=== PATIENT | male | born 1995 | race Caucasian/White ===

== ENCOUNTER 2023-06-25 08:20 | Inpatient (IN) | payer BC ==
[~2023-06-25] VITALS: Ht 180.3 cm; Wt 78.5 kg
[2023-06-25 08:24] VITALS: O2SAT 100
[2023-06-25] MEDS ORDERED: SODIUM CHLORIDE 0.9% 1000ML BAG (SEPSIS BOLUS) IV ONE (08:45)
[2023-06-25] MEDS ORDERED: ONDANSETRON HCL 4MG/2ML INJ IV ONE (09:15)
[2023-06-25 09:24] LABS: HEMATOCRIT. 42.5 % (42.0-52.0); HEMOGLOBIN. 14.5 g/dL (14.0-18.0); MEAN CORPUSCULAR HEMOGLOBIN 30.2 pg (28.0-32.0); MEAN CORPUSCULAR HGB CONC 34.2 g/dL (31.0-37.0); MEAN CORPUSCULAR VOLUME 88.2 fL (80.0-94.0); PLATELET 173 x1000/uL (130-400); RED BLOOD CELL COUNT 4.81 mill/uL (4.7-6.1); RED CELL DISTRIBUTION WIDTH 12.2 % (11.6-14.6); WHITE BLOOD COUNT 8.3 x1000/uL (4.5-11.0)
[2023-06-25 09:34] LABS: INR 1.1; PROTHROMBIN TIME 11.7 sec (9.6-11.0)
[2023-06-25] MEDS ORDERED: KETOROLAC 30MG/ML VIAL IV ONE (09:45)
[2023-06-25 09:46] LABS: ALANINE AMINOTRANSFERASE 54 IU/L (10-49); ALBUMIN 4.4 g/dL (3.2-4.8); ASPARTATE AMINOTRANSFERASE 31 IU/L (<34); CALCIUM 9.7 mg/dL (8.7-10.4); CARBON DIOXIDE 21 mEq/L (21-32); CHLORIDE 106 mEq/L (98-107); GLUCOSE 104 mg/dL (70-105); POTASSIUM 3.5 mEq/L (3.5-5.1); PROTEIN TOTAL 7.1 g/dL (6.0-8.3); SODIUM 139 mEq/L (136-145); UREA NITROGEN BLOOD 14 mg/dL (9-23)
[2023-06-25 10:12] LABS: TROPONIN I HIGH SENSITIVITY < 4 ng/L (3.0-53)
[2023-06-25 10:13] LABS: DIFFERENTIAL COMMENT 1
[2023-06-25 10:14] LABS: LACTIC ACID 3.3 mmol/L (0.4-2.0)
[2023-06-25] MEDS ORDERED: MEROPENEM 1,000 MG in SODIUM CHLORIDE 0.9% 100 ML IV ONE (10:15)
[2023-06-25] MEDS ORDERED: VANCOMYCIN 1G PREMIX 200 ML IV ONE (10:15)
[2023-06-25 10:41] LABS: PLATELET ESTIMATE NORMAL
[2023-06-25 12:37] LABS: CLARITY URINE CLEAR (CLEAR); COLOR URINE YELLOW (YELLOW); GLUCOSE URINE NEGATIVE (NEGATIVE); KETONES URINE 3+ (NEGATIVE); LEUKOCYTE ESTERASE URINE NEGATIVE (NEGATIVE); NITRITE URINE NEGATIVE (NEGATIVE); OCCULT BLOOD URINE NEGATIVE (NEGATIVE); PH URINE >=9.0 (4.5-8.0); PROTEIN URINE 1+ (NEGATIVE); SPECIFIC GRAVITY URINE 1.028 (1.005-1.030)
[2023-06-25 12:40] LABS: WBC URINE 0-2 /hpf (0-2); YEAST URINE NONE SEEN
[2023-06-25] MEDS ORDERED: IPRATROPIUM/ALBUTEROL 0.5-3(2.5)MG/3ML NEB HHN PRN (12:45)
[2023-06-25] MEDS ORDERED: DOCUSATE SODIUM 100MG CAPSULE PO PRN (12:45)
[2023-06-25] MEDS ORDERED: MAGNESIUM/ALUMINUM HYDROXIDE/SIMETHICONE 30ML UDC PO PRN (12:45)
[2023-06-25] MEDS ORDERED: CLONIDINE 0.1MG TABLET PO PRN (12:45)
[2023-06-25] MEDS ORDERED: GUAIFENESIN 200MG/10ML SUGAR FREE UDC PO PRN (12:45)
[2023-06-25 12:58] LABS: BACTERIA URINE 1+; RBC URINE 0-2 /hpf (0-2); SQUAMOUS EPITHELIAL CELL URINE NONE SEEN /lpf (RARE/1+)
[2023-06-25] MEDS ORDERED: KCL 20MEQ/100ML PREMIX 100 ML IV NR (13:00)
[2023-06-25] MEDS: SODIUM CHLORIDE 0.9% 1,000 ML IV SCH (13:31)
[2023-06-25] MEDS: ENOXAPARIN 40MG/0.4ML SYR SUBCUT SCH (14:00)
[2023-06-25 16:48] LABS: LACTATE DEHYDROGENASE 163 IU/L (120-246)
[2023-06-25 17:04] LABS: TROPONIN I HIGH SENSITIVITY < 4 ng/L (3.0-53)
[2023-06-25] MEDS: PANTOPRAZOLE SODIUM 40 MG/VIAL IV SCH (17:48)
[2023-06-25 18:16] LABS: *AMPHETAMINES SCREEN URINE NEGATIVE (NEGATIVE); *BARBITURATES SCREEN URINE NEGATIVE (NEGATIVE); *BENZODIAZEPINES SCREEN URINE NEGATIVE (NEGATIVE); *COCAINE SCREEN URINE NEGATIVE (NEGATIVE); CANNABINOID URINE SCREEN NEGATIVE (NEGATIVE); ECSTASY MDMA SCREEN URINE NEGATIVE (NEGATIVE); METHADONE URINE SCREEN Neg (NEGATIVE); OPIATES URINE SCREEN NEGATIVE (NEGATIVE); PHENCYCLIDINE URINE SCREEN NEGATIVE (NEGATIVE)
[2023-06-25] MEDS ORDERED: MAGNESIUM 2 G PREMIX 50 ML IV NR (19:00)
[2023-06-25] MEDS: ACETAMINOPHEN 325MG TABLET PO PRN (19:46)
[2023-06-25] MEDS: ONDANSETRON HCL 4MG/2ML INJ IV PRN (19:49)
[2023-06-25 23:30] VITALS: BP 105/73; PULSE 113; RESP 18; TEMP 97.5
[2023-06-26] MEDS: SODIUM CHLORIDE 0.9% 1,000 ML IV SCH ×3 (00:07→17:34)
[2023-06-26 01:46] LABS: TROPONIN I HIGH SENSITIVITY < 4 ng/L (3.0-53)
[2023-06-26 04:00] VITALS: BP 133/68; PULSE 113; RESP 18; TEMP 98.9
[2023-06-26] MEDS: ONDANSETRON HCL 4MG/2ML INJ IV PRN (04:23)
[2023-06-26] MEDS: ACETAMINOPHEN 325MG TABLET PO PRN ×3 (04:28→15:55)
[2023-06-26 06:40] LABS: BASOPHILS % 0.3 % (0.0-2.0); EOSINOPHILS % 0.6 % (0.0-5.0); HEMATOCRIT. 36.4 % (42.0-52.0); HEMOGLOBIN. 12.8 g/dL (14.0-18.0); LYMPHOCYTES % 10.3 % (20.0-50.0); MEAN CORPUSCULAR HEMOGLOBIN 30.8 pg (28.0-32.0); MEAN CORPUSCULAR HGB CONC 35.2 g/dL (31.0-37.0); MEAN CORPUSCULAR VOLUME 87.4 fL (80.0-94.0); MEAN PLATELET VOLUME 9.2 fl (7.4-10.4); MONOCYTES % 10.2 % (2.0-8.0); NEUTROPHILS % 78.6 % (40.0-76.0); PLATELET 127 x1000/uL (130-400); RED BLOOD CELL COUNT 4.17 mill/uL (4.7-6.1); RED CELL DISTRIBUTION WIDTH 12.5 % (11.6-14.6); WHITE BLOOD COUNT 6.1 x1000/uL (4.5-11.0)
[2023-06-26 07:02] LABS: ALANINE AMINOTRANSFERASE 36 IU/L (10-49); ALBUMIN 3.4 g/dL (3.2-4.8); ASPARTATE AMINOTRANSFERASE 26 IU/L (<34); BILIRUBIN TOTAL 0.6 mg/dL (0.1-1.0); CALCIUM 8.1 mg/dL (8.7-10.4); CARBON DIOXIDE 23 mEq/L (21-32); CHLORIDE 108 mEq/L (98-107); CHOLESTEROL 133 mg/dL (<200); CREATININE 0.8 mg/dL (0.6-1.3); GLUCOSE 103 mg/dL (70-105); HDL CHOLESTEROL 41 mg/dL (>55); LDL CHOLESTEROL 76 mg/dL (5-100); POTASSIUM 3.6 mEq/L (3.5-5.1); PROTEIN TOTAL 5.5 g/dL (6.0-8.3); SODIUM 139 mEq/L (136-145); T4 FREE 0.93 ng/dL (0.89-1.76); THYROID STIMULATING HORMONE 1.28 uIU/mL (0.55-4.78); TRIGLYCERIDE 37 mg/dL (0-150); UREA NITROGEN BLOOD 7 mg/dL (9-23)
[2023-06-26] MEDS ORDERED: ESCI20TA37 PO (07:05)
[2023-06-26] MEDS ORDERED: ESCI-7 PO (07:05)
[2023-06-26 08:00] VITALS: BP 127/78; PULSE 110; RESP 18; TEMP 97.6
[2023-06-26] MEDS: PANTOPRAZOLE SODIUM 40 MG/VIAL IV SCH ×2 (09:02→17:33)
[2023-06-26 12:00] VITALS: BP 131/71; PULSE 114; RESP 16; TEMP 98.1
[2023-06-26] MEDS: ENOXAPARIN 40MG/0.4ML SYR SUBCUT SCH (13:22)
[2023-06-26 16:00] VITALS: BP 125/80; PULSE 107; RESP 16; TEMP 97.8
== END 2023-06-26 19:52 | disposition left against medical advice (07) | DRG 178 ==
LOC: ER 08:20 → MICUSO 11:19 → EDBEDREQ 11:24 → EDBEDREQTM 11:24 → 7WST 23:58
PROVIDERS: ADMIT Internal Medicine; ATTEND Internal Medicine
DX: U07.1 COVID-19 (principal); E87.20 Acidosis, unspecified; E87.6 Hypokalemia; Z53.29 Procedure and treatment not carried out because of patient's decision for other reasons; E83.42 Hypomagnesemia; Z88.0 Allergy status to penicillin; Z79.899 Other long term (current) drug therapy
CPT/HCPCS: 36415; 71045; 80053; 80061; 80305; 81003; 82728; 83605; 83615; 83735; 84145; 84439; 84443; 84484; 85025; 85379; 87426; 87804; 93005; 99291; C9113; C9803; J1650; J1885; J2185; J2405; J3370; J3475; J3480; J7030; J7050